=== PATIENT | female | born 1940 | race Hispanic/Latino ===

== ENCOUNTER 2018-01-03 11:09 | Emergency (ER) | payer BC, MEDICARE ==
[2018-01-03 11:10] VITALS: BMI 32.1
--- NOTE | 2018-01-03 12:39 | RAD ---
HISTORY: Cough COMPARISON: 06/29/2020 50 TECHNIQUE: Chest PA and lateral FINDINGS: LUNGS: No active pulmonary disease. PLEURA: No significant pleural effusion identified. No pneumothorax apparent. CARDIOVASCULAR: Normal. OSSEOUS STRUCTURES: No significant abnormalities. VISUALIZED UPPER ABDOMEN: Normal. OTHER FINDINGS: None. IMPRESSION: No active disease.
[2018-01-03 13:39] LABS: BASO # 0.1 K/uL (0.0-0.2); BASO % 1.1 % (0.0-2.0); EOS # 0.2 K/uL (0.0-0.7); HEMOGLOBIN 12.4 g/dL (12.0-16.0); LYMPH # 1.4 K/uL (1.0-4.3); MEAN CELL VOLUME 86.2 fl (81.0-99.0); MEAN CORPUSCULAR HEMOGLOBIN 28.2 pg (27.0-31.0); MEAN CORPUSCULAR HGB CONC 32.7 g/dL (33.0-37.0); MEAN PLATELET VOLUME 8.8 fl (7.2-11.7); MONO # 0.4 K/uL (0.0-0.8); MONO % 8.1 % (0.0-10.0); NEUT # 2.7 K/uL (1.8-7.0); NEUT % 56.8 % (50.0-75.0); NRBC % 0.1 % (0.0-0.0); RBC 4.4 Mil/uL (3.80-5.20); RED CELL DISTRIBUTION WIDTH 13.4 % (11.5-14.5); WHITE BLOOD COUNT 4.8 K/uL (4.8-10.8)
--- NOTE | 2018-01-03 13:41 | ED PDOC ---
HPI: General Adult Time Seen by Provider: 01/03/18 11:52 Chief Complaint (Nursing): Flu-like Symptoms Chief Complaint (Provider): Flu-like Symptoms History Per: Patient History/Exam Limitations: no limitations Onset/Duration Of Symptoms: Persistent (x2 weeks) Additional Complaint(s): Gracia Reyes is a 77 year old female that presents to the ED with a chief complaint of cough, pleuritic chest pain, and back pain with cough that she has been experiencing for the past two weeks. Patient states that she has been taking over the counter medications without relief, and denies any fever. Of Note: Patient presents to ED with , who has similar symptoms. Past Medical History Reviewed: Historical Data, Nursing Documentation, Vital Signs Vital Signs: Last Vital Signs Temp 98.0 F 01/03/18 20:11 Pulse 75 01/03/18 20:11 Resp 15 01/03/18 20:11 BP 134/78 01/03/18 20:11 Pulse Ox 99 01/03/18 20:11 - Medical History PMH: Anemia, Anxiety, Arthritis (KNEES AND HANDS), Asthma, Bronchitis, Colonic Polyps, GERD, HTN, Hypercholesterolemia, Hypothyroidism Denies: Chronic Kidney Disease - Surgical History Surgical History: Cholecystectomy, Endoscopy - Family History Family History: States: Unknown Family Hx - Home Medications Home Medications: Ambulatory Orders Medication Instructions Recorded Albuterol HFA [Ventolin HFA 90 2 puff IH Q6 PRN 01/03/18 mcg/actuation (8 g)] Aspirin [Aspirin] 325 mg PO DAILY 01/03/18 Benzonatate [Tessalon Perles] 100 mg PO BID PRN 5 Days sgl 01/03/18 Budesonide/Formoterol Fumarate 2 puff IH Q12 01/03/18 [Symbicort 160-4.5 Mcg Inhaler] Glipizide [Glipizide Xl] 10 mg PO BID 01/03/18 Insulin Aspart Prot/Insuln Asp 10 unit SC BID 01/03/18 [Novolog Mix 70-30 Vial] Levothyroxine [Synthroid] 25 mcg PO DAILY 01/03/18 Linaclotide [Linzess] 145 mcg PO DAILY 01/03/18 Losartan [Cozaar] 50 mg PO DAILY 01/03/18 MetFORMIN [glucoPHAGE] 1,000 mg PO BID 01/03/18 [place]-3 Fatty Acids/Fish Oil 1 cap PO DAILY 01/03/18 [[place]-3 1,000 mg Softgel] Omeprazole [Omeprazole] 40 mg PO DAILY 01/03/18 Rosuvastatin Calcium [Crestor] 10 mg PO HS 01/03/18 Theophylline Anhydrous 600 mg PO DAILY 01/03/18 [Theophylline] Vitamin B Complex [Super B-50 1 cap PO DAILY 01/03/18 Complex] - Allergies Allergies/Adverse Reactions: Allergies Allergy/AdvReac Type Severity Reaction Status Date / Time Penicillins Allergy RASH Verified 01/03/18 12:12 Review of Systems ROS Statement: Except As Marked, All Systems Reviewed And Found Negative Cardiovascular: Positive for: Chest Pain Respiratory: Positive for: Cough Musculoskeletal: Positive for: Back Pain (with cough) Physical Exam - Reviewed Nursing Documentation Reviewed: Yes Vital Signs Reviewed: Yes - Physical Exam Appears: Positive for: Non-toxic, No Acute Distress Head Exam: Positive for: ATRAUMATIC, NORMOCEPHALIC Skin: Positive for: Normal Color, Warm Eye Exam: Positive for: Normal appearance, EOMI, PERRL ENT: Positive for: Normal ENT Inspection Neck: Positive for: Normal, Supple Cardiovascular/Chest: Positive for: Regular Rate, Rhythm. Negative for: Murmur Respiratory: Positive for: Normal Breath Sounds. Negative for: Wheezing Gastrointestinal/Abdominal: Positive for: Normal Exam, Soft. Negative for: Tenderness Back: Positive for: Normal Inspection. Negative for: L CVA Tenderness, R CVA Tenderness Extremity: Positive for: Normal ROM. Negative for: Deformity, Swelling Neurologic/Psych: Positive for: Alert, Oriented. Negative for: Motor/Sensory Deficits - Laboratory Results Result Diagrams: 01/03/18 13:00 01/03/18 13:00 - ECG O2 Sat by Pulse Oximetry: 96 (RA) Pulse Ox Interpretation: Normal Medical Decision Making Medical Decision Making: Impression: Viral Syndrome vs. Pneumonia vs. Influenza vs. Bronchitis Plan: * EKG * CMP * CBC * PTT * PT * Troponin I * Glucose, Blood, POC * Urine Dip * Urinalysis * Blood Culture * Flu Swab * Reevaluation Scribe Attestation: Documented by Zoey Monsivais, acting as a scribe for Debo Nelson MD. Provider Scribe Attestation: All medical record entries made by the Scribe were at my direction and personally dictated by me. I have reviewed the chart and agree that the record accurately reflects my personal performance of the history, physical exam, medical decision making, and the department course for this patient. I have also personally directed, reviewed, and agree with the discharge instructions and disposition. Disposition - Clinical Impression Clinical Impression: URI (upper respiratory infection), Chest pain - Disposition Referrals: [facility] [Outside] - 01/04/18 Disposition: Transfer of Care Disposition Time: 15:30 Condition: STABLE Additional Instructions: Return if not better in 3 days. Prescriptions: Benzonatate [Tessalon Perles] 100 mg PO BID PRN 5 Days sgl PRN Reason: Cough Instructions: Chest Pain, Viral Upper Respiratory Infection, Adult (DC) Forms: [employer] (Romanian) Print Language: MACEDONIAN Patient Signed Over To: Fidencio Wilson Handoff Comments: Pending repeat troponin.
[2018-01-03 13:52] LABS: ALB/GLOB RATIO 1.3 (1.0-2.1); ALBUMIN 4.4 g/dL (3.5-5.0); ALT/SGPT 35 U/L (9-52); AST/SGOT 35 U/L (14-36); BLOOD UREA NITROGEN 20 mg/dl (7-17); GFR AFRICAN-AMERICAN > 60; GFR NON-AFRICAN AMERICAN > 60
[2018-01-03 14:12] LABS: SQUAMOUS EPITHIAL 2 /hpf (0-5); URINE BILIRUBIN NEGATIVE (NEGATIVE); URINE BLOOD NEGATIVE (NEGATIVE); URINE CLARITY SLIGHTY-CLOUDY (Clear); URINE COLOR YELLOW (YELLOW); URINE GLUCOSE (UA) NEG (Normal); URINE LEUKOCYTE ESTERASE NEG Leu/uL (Negative); URINE NITRATE NEGATIVE (NEGATIVE); URINE PROTEIN 30 mg/dL (NEGATIVE)
[2018-01-03 15:19] LABS: PARTIAL THROMBOPLASTIN TIME 31.6 Seconds (25.6-37.1); PROTHROMBIN TIME 10.4 Seconds (9.8-13.1)
[2018-01-03] MEDS ORDERED: Iodixanol 320 MG/ML 100 ML BOTTLE IV ONE (16:15)
[2018-01-03] MEDS ORDERED: Sodium Chloride 0.9% 100 ML ONE (16:16)
--- NOTE | 2018-01-03 17:32 | CT ---
PROCEDURE: CT Chest with contrast (Pulmonary Angiogram) HISTORY: Pleuritic CP COMPARISON: None available. TECHNIQUE: Axial computed tomography images were obtained of the chest in the pulmonary arterial phase of enhancement. Coronal and sagittal reformatted images were created and reviewed. Intravenous contrast dose: 90 mL Visipaque 320 Radiation dose: Total exam DLP = 378.63 mGy-cm. This CT exam was performed using one or more of the following dose reduction techniques: Automated exposure control, adjustment of the mA and/or kV according to patient size, and/or use of iterative reconstruction technique. FINDINGS: PULMONARY ARTERIES: Unremarkable. No pulmonary embolism. AORTA: No acute findings. No thoracic aortic aneurysm. LUNGS: No pulmonary infiltrate. 6 mm right upper lobe subpleural noncalcified nodule. Followup advised 6-12 months with noncontrast chest CT as per Fleischner society criteria. No other pulmonary mass identified. PLEURAL SPACES: Unremarkable. No effusion or pneuomothorax. HEART: Unremarkable. No cardiomegaly. No significant pericardial effusion. LYMPH NODES: No lymphadenopathy. BONES, CHEST WALL: Unremarkable. No fracture or destructive lesion OTHER FINDINGS: Status post cholecystectomy. IMPRESSION: No evidence of pulmonary embolism. Incidental 6 mm subpleural nodule right upper lobe. Followup with noncontrast chest CT advised 6-12 months. No other significant abnormality.
--- NOTE | 2018-01-03 17:40 | ED PDOC ---
- Laboratory Results Result Diagrams: 01/03/18 13:00 01/03/18 13:00 Interpretation Of Abn Labs: dimer elevated - ECG O2 Sat by Pulse Oximetry: 96 (RA) Pulse Ox Interpretation: Normal - Progress ED Course And Treament: 1730: Took over care from Dr. Kent. Here with chest pain, cough, back pain. FU on CT and repeat troponin. Likely uri related. CT: Incidental nodule on lung. 185: Stable. AAOx3. Pain free. Disposition - Clinical Impression Clinical Impression: URI (upper respiratory infection), Chest pain - POA Present On Arrival: None - Disposition Referrals: [facility] [Outside] - 01/04/18 Disposition: Routine/Home Disposition Time: 19:00 Condition: STABLE Additional Instructions: Return if not better in 3 days. Prescriptions: Benzonatate [Tessalon Perles] 100 mg PO BID PRN 5 Days sgl PRN Reason: Cough Instructions: Chest Pain, Viral Upper Respiratory Infection, Adult (DC) Forms: [employer] (Greek) Print Language: ENGLISH
[2018-01-03 20:12] VITALS: BP 134/78; PULSE 75; RESP 15; TEMP 98
[2018-01-04 16:28] VITALS: O2SAT 96
--- NOTE | 2018-01-05 18:23 | CARD ---
APPROVED REPORT EKG Measurement Heart [id number] <Conclusion> Normal sinus rhythm Minimal voltage criteria for LVH, may be normal variant Nonspecific T wave abnormality Abnormal ECG
== END 2018-01-03 20:12 | disposition home or self-care (01) ==
LOC: H.ER 11:09
DX: J06.9 Acute upper respiratory infection, unspecified (principal); R07.89 Other chest pain; E03.9 Hypothyroidism, unspecified; E78.00 Pure hypercholesterolemia, unspecified; I10 Essential (primary) hypertension; Z79.4 Long term (current) use of insulin; Z79.82 Long term (current) use of aspirin; Z88.0 Allergy status to penicillin; K21.9 Gastro-esophageal reflux disease without esophagitis; J45.909 Unspecified asthma, uncomplicated; F41.9 Anxiety disorder, unspecified
CPT/HCPCS: 71046; 71275; 80053; 81003; 82948; 84484; 85025; 85378; 85610; 85730; 87040; 87804; 93005; 99283; Q9967

== ENCOUNTER 2018-08-30 15:52 | Observation (INO) | payer MEDICARE ==
[2018-08-30 15:52] VITALS: BMI 34.5
--- NOTE | 2018-08-30 16:48 | ED PDOC ---
Hyperglycemia/Hypoglycemia Time Seen by Provider: 08/30/18 16:17 Chief Complaint (Nursing): High Blood Sugar Chief Complaint (Provider): Dizziness History Per: Patient History/Exam Limitations: no limitations Onset/Duration Of Symptoms: Days Current Symptoms Are (Timing): Still Present : The patient does not have any of the infectious symptoms listed except for those marked. Additional History Per: Patient Additional Complaint(s): 78yo female, history of diabetes, comes to ER reporting dizziness x 2 days and states she feels "woozy" and as if the room is spinning. She reports the dizziness is present when she sits up from a flat position but at times is present when she lies down. She states the symptoms last approximately 1 min and spontaneously resolve, but are recurrent. She additionally reports for the past 1 month, she has had difficulty controlling her blood sugar and recently had her diabetes medications adjusted by her doctor. She reports despite the adjustment, her blood sugar has been around 300 and close to 400 this past week. Patient states she has a chronic overactive bladder and she tries to drink a lot of water; she denies any worsening polydypsia or polyuria. Otherwise, denies any ch est pain, shortness of breath, or worsening lower extremity edema. No other complaints. PMD: Dr. Ji Past Medical History Reviewed: Historical Data, Nursing Documentation, Vital Signs Vital Signs: Last Vital Signs Temp 98.2 F 08/30/18 16:07 Pulse 81 08/30/18 16:07 Resp 16 08/30/18 16:07 BP 184/81 H 08/30/18 16:07 Pulse Ox 99 08/30/18 16:07 - Medical History PMH: Anemia, Anxiety, Arthritis, Asthma, Bronchitis, Colonic Polyps, COPD, Diabetes, GERD, HTN, Hypercholesterolemia, Hypothyroidism Denies: Chronic Kidney Disease - Surgical History Surgical History: Cholecystectomy, Endoscopy - Family History Family History: States: Unknown Family Hx - Social History Current smoker - smoking cessation education provided: No Alcohol: None Drugs: Denies - Home Medications Home Medications: Ambulatory Orders Medication Instructions Recorded RX: Albuterol HFA [Ventolin HFA 90 2 puff IH Q6 PRN 01/03/18 mcg/actuation (8 g)] RX: Aspirin 325 mg PO DAILY 01/03/18 RX: Budesonide/Formoterol Fumarate 2 puff IH Q12 01/03/18 [Symbicort 160-4.5 Mcg Inhaler] RX: Glipizide [Glipizide Xl] 10 mg PO BID 01/03/18 RX: Insulin Aspart Prot/Insuln Asp 15 unit SC BID 01/03/18 [Novolog Mix 70-30 Vial] RX: Levothyroxine [Synthroid] 50 mcg PO DAILY 01/03/18 RX: Linaclotide [Linzess] 145 mcg PO DAILY 01/03/18 RX: Losartan [Cozaar] 50 mg PO DAILY 01/03/18 RX: MetFORMIN [glucoPHAGE] 1,000 mg PO BID 01/03/18 RX: [place]-3 Fatty Acids/Fish Oil 1 cap PO DAILY 01/03/18 [[place]-3 1,000 mg Softgel] RX: Omeprazole 40 mg PO DAILY 01/03/18 RX: Rosuvastatin Calcium [Crestor] 10 mg PO DAILY 01/03/18 RX: Theophylline Anhydrous 600 mg PO DAILY PRN 01/03/18 [Theophylline] RX: Vitamin B Complex [Super B-50 1 cap PO DAILY 01/03/18 Complex] RX: Albuterol/Ipratropium [Duoneb 3 ml IH Q6 PRN 08/30/18 3 mg/0.5 mg (3 ml) UD] RX: Cholecalciferol (Vitamin D3) 5,000 unit PO DAILY 08/30/18 [Vitamin D3] RX: Oxybutynin XL [Ditropan XL] 20 mg PO DAILY 08/30/18 RX: Acetaminophen [Tylenol 325mg 650 mg PO Q6 PRN tab 08/31/18 tab] RX: Magnesium Oxide [Magnesium] 400 mg PO DAILY 5 Days #5 capsule 08/31/18 RX: Meclizine [Meclizine*] 25 mg PO TID PRN 30 Days #30 tab 08/31/18 - Allergies Allergies/Adverse Reactions: Allergies Allergy/AdvReac Type Severity Reaction Status Date / Time Penicillins Allergy RASH Verified 08/30/18 16:08 Review of Systems ROS Statement: Except As Marked, All Systems Reviewed And Found Negative (as per HPI) Constitutional: Negative for: Fever, Chills Cardiovascular: Negative for: Chest Pain Respiratory: Negative for: Shortness of Breath Genitourinary Female: Negative for: Frequency Neurological: Positive for: Dizziness. Negative for: Weakness, Numbness Physical Exam - Reviewed Nursing Documentation Reviewed: Yes Vital Signs Reviewed: Yes - Physical Exam Appears: Positive for: Non-toxic, No Acute Distress Head Exam: Positive for: ATRAUMATIC, NORMAL INSPECTION, NORMOCEPHALIC Skin: Positive for: Normal Color, Warm, DRY Eye Exam: Positive for: Normal appearance, EOMI, PERRL. Negative for: Nystagmus Neck: Positive for: Normal, Supple Cardiovascular/Chest: Positive for: Regular Rate, Rhythm Respiratory: Positive for: Normal Breath Sounds Gastrointestinal/Abdominal: Positive for: Normal Exam, Soft Back: Positive for: Normal Inspection Extremity: Positive for: Normal ROM Neurologic/Psych: Positive for: Alert, lap regulator II-XII, Oriented, Other (Floyd-hallpike test elicits dizziness with left to right motion; no nystagmus. Head impulse test negatie. Test of skew negative.). Negative for: Motor/Sensory Deficits - Laboratory Results Result Diagrams: 08/30/18 17:06 08/30/18 17:06 - ECG ECG: Positive for: Interpreted By Me, Viewed By Me ECG Rhythm: Positive for: Normal QRS, Sinus Rhythm Interpretation Of Abn EKG: t-wave inversion lateral leads; unchanged from prior on 06/15/18 Rate: 69 O2 Sat by Pulse Oximetry: 99 (RA) Pulse Ox Interpretation: Normal Medical Decision Making Medical Decision Making: Impression: 78yo female with vertigo, mild hyperglycemia Differential: Includin but not limited to electrolyte abnormality, renal insufficiency, hypertensive encephalopathy, intracranial mass Plan: -- Labs -- CT Head w.o contrast -- Urinalysis -- EKG -- Meclizine 25 mg PO 17:37 CT Head FINDINGS: Streak artifact obscures evaluation of the skull base. HEMORRHAGE: No intracranial hemorrhage. BRAIN: Diffuse atrophy with prominence of the ventricles and sulci noted. No mass effect or edema. Intracranial atherosclerosis. Scattered periventricular and subcortical white matter hypodensities, which are nonspecific, but often seen with chronic microvascular ischemic disease. Please note that MRI with diffusion imaging is more sensitive in the detection of acute ischemic event. VENTRICLES: No hydrocephalus. CALVARIUM: Unremarkable. PARANASAL SINUSES: Mild mucosal thickening of the ethmoid air cells. MASTOID AIR CELLS: Unremarkable as visualized. No inflammatory changes. OTHER FINDINGS: None. IMPRESSION: Generalized atrophy. Nonspecific white matter changes. 17:58 Labs reviewed, significant for mild hyperglycemia and mild low magnesium. 18:10 On reeval patient continues to have vertiginous dizziness. Due to vascular risk factors, there is concern for VBI. Patient to be hospitalized for intractable vertigo and uncontrolled DM. Scribe Attestation: Documented by Anabel Joyce, acting as a scribe for Yin Aaron MD. Provider Scribe Attestation: All medical record entries made by the Scribe were at my direction and personall y dictated by me. I have reviewed the chart and agree that the record accurately reflects my personal performance of the history, physical exam, medical decision making, and the department course for this patient. I have also personally directed, reviewed, and agree with the discharge instructions and disposition. Disposition - Clinical Impression Clinical Impression: Hyperglycemia, Vertigo, Hypomagnesemia Counseled Patient/Family Regarding: Studies Performed, Diagnosis - Disposition Disposition Time: 18:00 Condition: FAIR - Pt Status Changed To: Hospital Disposition Of: Observation - POA Present On Arrival: Falls Or Trauma (risk), Poor Glycemic Control
[2018-08-30 17:21] LABS: BASO % 0.9 % (0.0-2.0); EOS # 0.1 K/uL (0.0-0.7); EOS % 3.1 % (0.0-4.0); HEMOGLOBIN 11.8 g/dL (12.0-16.0); LYMPH # 1.3 K/uL (1.0-4.3); LYMPH % 28.2 % (20.0-40.0); MEAN CELL VOLUME 86.4 fl (81.0-99.0); MEAN CORPUSCULAR HEMOGLOBIN 27.7 pg (27.0-31.0); MEAN CORPUSCULAR HGB CONC 32.1 g/dL (33.0-37.0); MEAN PLATELET VOLUME 9.1 fl (7.2-11.7); MONO # 0.5 K/uL (0.0-0.8); MONO % 11.8 % (0.0-10.0); NEUT # 2.6 K/uL (1.8-7.0); RBC 4.27 Mil/uL (3.80-5.20); RED CELL DISTRIBUTION WIDTH 13.3 % (11.5-14.5); WHITE BLOOD COUNT 4.7 K/uL (4.8-10.8)
[2018-08-30 17:24] LABS: ALB/GLOB RATIO 1.4 (1.0-2.1); ALBUMIN 4.1 g/dL (3.5-5.0); ALT/SGPT 36 U/L (9-52); AST/SGOT 28 U/L (14-36); BLOOD UREA NITROGEN 19 mg/dl (7-17); GFR NON-AFRICAN AMERICAN > 60
[2018-08-30 17:33] LABS: B-TYPE NATRIURETIC PEPTIDE 162 pg/ml (0-900)
[2018-08-30 17:44] LABS: SQUAMOUS EPITHIAL 4 /hpf (0-5); URINE BACTERIA RARE (<OCC); URINE BILIRUBIN NEGATIVE (NEGATIVE); URINE BLOOD NEGATIVE (NEGATIVE); URINE CLARITY SLIGHTY-CLOUDY (Clear); URINE COLOR BLUE (YELLOW); URINE GLUCOSE (UA) 50 mg/dL (Normal); URINE HYALINE CAST 0-2 /hpf (0-2); URINE LEUKOCYTE ESTERASE NEG Leu/uL (Negative); URINE PROTEIN 30 mg/dL (NEGATIVE); URINE UROBILINOGEN 0.2-1.0 mg/dL (0.2-1.0)
--- NOTE | 2018-08-30 17:51 | CT ---
Date of service: 08/30/2018 PROCEDURE: CT HEAD WITHOUT CONTRAST. HISTORY: dizziness COMPARISON: Images from noncontrast head CT performed 08/24/10 TECHNIQUE: Axial computed tomography images were obtained through the head/brain without intravenous contrast. Radiation dose: Total exam DLP = 844.96 mGy-cm. This CT exam was performed using one or more of the following dose reduction techniques: Automated exposure control, adjustment of the mA and/or kV according to patient size, and/or use of iterative reconstruction technique. FINDINGS: Streak artifact obscures evaluation of the skull base. HEMORRHAGE: No intracranial hemorrhage. BRAIN: Diffuse atrophy with prominence of the ventricles and sulci noted. No mass effect or edema. Intracranial atherosclerosis. Scattered periventricular and subcortical white matter hypodensities, which are nonspecific, but often seen with chronic microvascular ischemic disease. Please note that MRI with diffusion imaging is more sensitive in the detection of acute ischemic event. VENTRICLES: No hydrocephalus. CALVARIUM: Unremarkable. PARANASAL SINUSES: Mild mucosal thickening of the ethmoid air cells. MASTOID AIR CELLS: Unremarkable as visualized. No inflammatory changes. OTHER FINDINGS: None. IMPRESSION: Generalized atrophy. Nonspecific white matter changes.
[2018-08-30] MEDS ORDERED: Magnesium Oxide 400 mg Tab UD PO STA (18:05)
[2018-08-30] MEDS ORDERED: Insulin Regular 100 units/ml SC STA (18:09)
--- NOTE | 2018-08-30 21:38 | CP.PCM.HP ---
<KothariGermán leung - Last Filed: 08/30/18 23:09> History of Present Illness - History of Present Illness History of Present Illness: 78 year old female with IDDM, HTN, Asthma, Hypothyroidism, HLD presented with complaint of dizziness for past few days, that worsened today. Feeling is more like room is spinning. No alleviating/exacerbating factors. She does report that she has had high glucose readings at home for the past week. She saw her [employer] In last week and her insulin was increased. She takes Novolog Mix 70/30 15 units BID, but states her sugars have been >250 despite this. She admits to polydipsia but denies polyphagia/polyuria. No numbness or tingling of extemities, no weakness, no visual changes. Pt denies any headaches, visual disturbances, chest pain, dyspnea, abdominal pain, nausea, vomiting, pedal edema. Present on Admission - Present on Admission Any Indicators Present on Admission: No Past Patient History - Past Medical History & Family History Past Medical History?: Yes - Past Social History Alcohol: None Drugs: Denies - CARDIAC Hx Cardiac Disorders: Yes - PULMONARY Hx Asthma: Yes Hx Bronchitis: Yes Hx Chronic Obstructive Pulmonary Disease (COPD): Yes - NEUROLOGICAL Hx Neurological Disorder: No - HEENT Hx HEENT Problems: No Other/Comment: Wear glasses - RENAL Hx Chronic Kidney Disease: No - ENDOCRINE/METABOLIC Hx Endocrine Disorders: Yes - HEMATOLOGICAL/ONCOLOGICAL Hx Blood Disorders: Yes - INTEGUMENTARY Hx Dermatological Problems: No - MUSCULOSKELETAL/RHEUMATOLOGICAL Hx Arthritis: Yes - GASTROINTESTINAL Hx Gastrointestinal Disorders: Yes Hx Gastroesophageal Reflux: Yes Hx Hemorrhoids: Yes Other/Comment: HEARTBURN - GENITOURINARY/GYNECOLOGICAL Hx Genitourinary Disorders: Yes Hx Incontinence: Yes (OVERACTIVE BLADDER) Other/Comment: "OVERACTIVE BLADDER" - PSYCHIATRIC Hx Anxiety: Yes - SURGICAL HISTORY Hx Cholecystectomy: Yes - ANESTHESIA Hx Anesthesia: Yes Hx Anesthesia Reactions: No Hx Malignant Hyperthermia: No Meds Allergies/Adverse Reactions: Allergies Allergy/AdvReac Type Severity Reaction Status Date / Time Penicillins Allergy RASH Verified 08/30/18 16:08 Physical Exam - Constitutional Appears: Well, Non-toxic, No Acute Distress - Eye Exam Eye Exam: EOMI, Normal appearance, PERRL. absent: Nystagmus - ENT Exam ENT Exam: Mucous Membranes Moist - Respiratory Exam Respiratory Exam: Clear to Auscultation Bilateral, Wheezes (minimal, scattered ), NORMAL BREATHING PATTERN. absent: Rales, Rhonchi, Respiratory Distress - Cardiovascular Exam Cardiovascular Exam: REGULAR RHYTHM, +S1, +S2 - GI/Abdominal Exam GI & Abdominal Exam: Normal Bowel Sounds, Soft. absent: Tenderness - Extremities Exam Extremities exam: Positive for: normal inspection. Negative for: pedal edema - Back Exam Back exam: NORMAL INSPECTION - Neurological Exam Neurological exam: Alert, CN II-XII Intact, Reflexes Normal Additional comments: full range of motion b.l upper and lower extremities, strength 5/5, no sensory deficits - Psychiatric Exam Psychiatric exam: Normal Affect, Normal Mood - Skin Skin Exam: Dry, Intact, Normal Color, Warm Results - Vital Signs Recent Vital Signs: Last Vital Signs Temp 98.1 F 08/30/18 20:43 Pulse 67 08/30/18 20:43 Resp 16 08/30/18 20:43 BP 146/66 08/30/18 20:43 Pulse Ox 97 08/30/18 20:00 - Labs Result Diagrams: 08/30/18 17:06 08/30/18 17:06 Labs: Laboratory Results - last 24 hr 08/30/18 08/30/18 08/30/18 16:23 17:06 17:06 WBC 4.7 L RBC 4.27 Hgb 11.8 L Hct 36.9 MCV 86.4 MCH 27.7 MCHC 32.1 L RDW 13.3 Plt Count 238 MPV 9.1 Neut % (Auto) 56.0 Lymph % (Auto) 28.2 [place] % (Auto) 11.8 H Eos % (Auto) 3.1 Baso % (Auto) 0.9 Neut # (Auto) 2.6 Lymph # (Auto) 1.3 [place] # (Auto) 0.5 Eos # (Auto) 0.1 Baso # (Auto) 0.0 Sodium 140 Potassium 4.7 Chloride 108 H Carbon Dioxide 21 L Anion Gap 16 BUN 19 H Creatinine 0.5 L Est GFR ( Amer) > 60 Est GFR (Non-Af Amer) > 60 POC Glucose (mg/dL) 239 H Random Glucose 255 H Calcium 10.0 Phosphorus 3.3 Magnesium 1.2 L Total Bilirubin 0.2 AST 28 ALT 36 Alkaline Phosphatase 70 NT-Pro-B Natriuret Pep 162 Total Protein 7.1 Albumin 4.1 Globulin 3.0 Albumin/Globulin Ratio 1.4 TSH 3rd Generation 3.43 Urine Color Urine Clarity Urine pH Ur Specific [place] Urine Protein Urine Glucose (UA) Urine Ketones Urine Blood Urine Nitrate Urine Bilirubin Urine Urobilinogen Ur Leukocyte Esterase Urine RBC (Auto) Urine Microscopic WBC Ur Squamous Epith Cells Urine Bacteria Hyaline Casts Blood Type Antibody Screen BBK History Checked 08/30/18 08/30/18 08/30/18 17:07 17:10 17:15 WBC RBC Hgb Hct MCV MCH MCHC RDW Plt Count MPV Neut % (Auto) Lymph % (Auto) [place] % (Auto) Eos % (Auto) Baso % (Auto) Neut # (Auto) Lymph # (Auto) [place] # (Auto) Eos # (Auto) Baso # (Auto) Sodium Potassium Chloride Carbon Dioxide Anion Gap BUN Creatinine Est GFR ( Amer) Est GFR (Non-Af Amer) POC Glucose (mg/dL) 255 H Random Glucose Calcium Phosphorus Magnesium Total Bilirubin AST ALT Alkaline Phosphatase NT-Pro-B Natriuret Pep Total Protein Albumin Globulin Albumin/Globulin Ratio TSH 3rd Generation Urine Color Blue Urine Clarity Slighty-cloudy Urine pH 5.0 Ur Specific [place] 1.021 Urine Protein 30 Urine Glucose (UA) 50 Urine Ketones Negative Urine Blood Negative Urine Nitrate Negative Urine Bilirubin Negative Urine Urobilinogen 0.2-1.0 Ur Leukocyte Esterase Neg Urine RBC (Auto) 1 Urine Microscopic WBC 3 Ur Squamous Epith Cells 4 Urine Bacteria Rare Hyaline Casts 0-2 Blood Type O POSITIVE Antibody Screen Negative BBK History Checked Patient has bt 08/30/18 20:00 WBC RBC Hgb Hct MCV MCH MCHC RDW Plt Count MPV Neut % (Auto) Lymph % (Auto) [place] % (Auto) Eos % (Auto) Baso % (Auto) Neut # (Auto) Lymph # (Auto) [place] # (Auto) Eos # (Auto) Baso # (Auto) Sodium Potassium Chloride Carbon Dioxide Anion Gap BUN Creatinine Est GFR ( Amer) Est GFR (Non-Af Amer) POC Glucose (mg/dL) 167 H Random Glucose Calcium Phosphorus Magnesium Total Bilirubin AST ALT Alkaline Phosphatase NT-Pro-B Natriuret Pep Total Protein Albumin Globulin Albumin/Globulin Ratio TSH 3rd Generation Urine Color Urine Clarity Urine pH Ur Specific [place] Urine Protein Urine Glucose (UA) Urine Ketones Urine Blood Urine Nitrate Urine Bilirubin Urine Urobilinogen Ur Leukocyte Esterase Urine RBC (Auto) Urine Microscopic WBC Ur Squamous Epith Cells Urine Bacteria Hyaline Casts Blood Type Antibody Screen BBK History Checked - Imaging and Cardiology CT scan - head Additional comment: FINDINGS: Streak artifact obscures evaluation of the skull base. HEMORRHAGE: No intracranial hemorrhage. BRAIN: Diffuse atrophy with prominence of the ventricles and sulci noted. No mass effect or edema. Intracranial atherosclerosis. Scattered periventricular and subcortical white matter hypodensities, which are nonspecific, but often seen with chronic microvascular ischemic disease. Please note that MRI with diffusion imaging is more sensitive in the detection of acute ischemic event. VENTRICLES: No hydrocephalus. CALVARIUM: Unremarkable. PARANASAL SINUSES: Mild mucosal thickening of the ethmoid air cells. MASTOID AIR CELLS: Unremarkable as visualized. No inflammatory changes. OTHER FINDINGS: None. IMPRESSION: Generalized atrophy. Nonspecific white matter changes. Assessment & Plan - Assessment and Plan (Free Text) Assessment: 78 year old female presented with vertigo for past few days admitted for vertigo and hyperglycemia. Patients symptoms improved with meclizine, however she remains hyperglycemic. Symptoms may be related to hyperglycemia, infectious process less likely. Head CT reviewed. Patient is hemodynamically stable. #Vertigo #IDDM with hyperglycemia #Hypothyroidism #Normocytic Anemia #Asthma #DVT prophylaxis -continue with meclizine PRN -Accuchecks and insulin sliding scale for coverage -home insulin regimen resumed -f/u a1c and TSH -albuterol PRN -Lovenox 40mg sc case d/w attending <Yessy Presley - Last Filed: 08/31/18 09:21> Results - Vital Signs Recent Vital Signs: Last Vital Signs Temp 98.6 F 08/31/18 08:21 Pulse 61 08/31/18 08:21 Resp 18 08/31/18 08:21 BP 119/57 L 08/31/18 08:21 Pulse Ox 97 08/31/18 08:21 - Labs Result Diagrams: 08/30/18 17:06 08/30/18 17:06 Labs: Laboratory Results - last 24 hr 08/30/18 08/30/18 08/30/18 16:23 17:06 17:06 WBC 4.7 L RBC 4.27 Hgb 11.8 L Hct 36.9 MCV 86.4 MCH 27.7 MCHC 32.1 L RDW 13.3 Plt Count 238 MPV 9.1 Neut % (Auto) 56.0 Lymph % (Auto) 28.2 [place] % (Auto) 11.8 H Eos % (Auto) 3.1 Baso % (Auto) 0.9 Neut # (Auto) 2.6 Lymph # (Auto) 1.3 [place] # (Auto) 0.5 Eos # (Auto) 0.1 Baso # (Auto) 0.0 Sodium 140 Potassium 4.7 Chloride 108 H Carbon Dioxide 21 L Anion Gap 16 BUN 19 H Creatinine 0.5 L Est GFR ( Amer) > 60 Est GFR (Non-Af Amer) > 60 POC Glucose (mg/dL) 239 H Random Glucose 255 H Calcium 10.0 Phosphorus 3.3 Magnesium 1.2 L Total Bilirubin 0.2 AST 28 ALT 36 Alkaline Phosphatase 70 NT-Pro-B Natriuret Pep 162 Total Protein 7.1 Albumin 4.1 Globulin 3.0 Albumin/Globulin Ratio 1.4 TSH 3rd Generation 3.43 Urine Color Urine Clarity Urine pH Ur Specific [place] Urine Protein Urine Glucose (UA) Urine Ketones Urine Blood Urine Nitrate Urine Bilirubin Urine Urobilinogen Ur Leukocyte Esterase Urine RBC (Auto) Urine Microscopic WBC Ur Squamous Epith Cells Urine Bacteria Hyaline Casts Blood Type Antibody Screen BBK History Checked 08/30/18 08/30/18 08/30/18 17:07 17:10 17:15 WBC RBC Hgb Hct MCV MCH MCHC RDW Plt Count MPV Neut % (Auto) Lymph % (Auto) [place] % (Auto) Eos % (Auto) Baso % (Auto) Neut # (Auto) Lymph # (Auto) [place] # (Auto) Eos # (Auto) Baso # (Auto) Sodium Potassium Chloride Carbon Dioxide Anion Gap BUN Creatinine Est GFR ( Amer) Est GFR (Non-Af Amer) POC Glucose (mg/dL) 255 H Random Glucose Calcium Phosphorus Magnesium Total Bilirubin AST ALT Alkaline Phosphatase NT-Pro-B Natriuret Pep Total Protein Albumin Globulin Albumin/Globulin Ratio TSH 3rd Generation Urine Color Blue Urine Clarity Slighty-cloudy Urine pH 5.0 Ur Specific [place] 1.021 Urine Protein 30 Urine Glucose (UA) 50 Urine Ketones Negative Urine Blood Negative Urine Nitrate Negative Urine Bilirubin Negative Urine Urobilinogen 0.2-1.0 Ur Leukocyte Esterase Neg Urine RBC (Auto) 1 Urine Microscopic WBC 3 Ur Squamous Epith Cells 4 Urine Bacteria Rare Hyaline Casts 0-2 Blood Type O POSITIVE Antibody Screen Negative BBK History Checked Patient has bt 08/30/18 08/30/18 08/31/18 20:00 21:22 04:25 WBC RBC Hgb Hct MCV MCH MCHC RDW Plt Count MPV Neut % (Auto) Lymph % (Auto) [place] % (Auto) Eos % (Auto) Baso % (Auto) Neut # (Auto) Lymph # (Auto) [place] # (Auto) Eos # (Auto) Baso # (Auto) Sodium Potassium Chloride Carbon Dioxide Anion Gap BUN Creatinine Est GFR ( Amer) Est GFR (Non-Af Amer) POC Glucose (mg/dL) 167 H 133 H Random Glucose Calcium Phosphorus Magnesium Total Bilirubin AST ALT Alkaline Phosphatase NT-Pro-B Natriuret Pep Total Protein Albumin Globulin Albumin/Globulin Ratio TSH 3rd Generation 3.87 Urine Color Urine Clarity Urine pH Ur Specific [place] Urine Protein Urine Glucose (UA) Urine Ketones Urine Blood Urine Nitrate Urine Bilirubin Urine Urobilinogen Ur Leukocyte Esterase Urine RBC (Auto) Urine Microscopic WBC Ur Squamous Epith Cells Urine Bacteria Hyaline Casts Blood Type Antibody Screen BBK History Checked 08/31/18 05:10 WBC RBC Hgb Hct MCV MCH MCHC RDW Plt Count MPV Neut % (Auto) Lymph % (Auto) [place] % (Auto) Eos % (Auto) Baso % (Auto) Neut # (Auto) Lymph # (Auto) [place] # (Auto) Eos # (Auto) Baso # (Auto) Sodium Potassium Chloride Carbon Dioxide Anion Gap BUN Creatinine Est GFR ( Amer) Est GFR (Non-Af Amer) POC Glucose (mg/dL) 142 H Random Glucose Calcium Phosphorus Magnesium Total Bilirubin AST ALT Alkaline Phosphatase NT-Pro-B Natriuret Pep Total Protein Albumin Globulin Albumin/Globulin Ratio TSH 3rd Generation Urine Color Urine Clarity Urine pH Ur Specific [place] Urine Protein Urine Glucose (UA) Urine Ketones Urine Blood Urine Nitrate Urine Bilirubin Urine Urobilinogen Ur Leukocyte Esterase Urine RBC (Auto) Urine Microscopic WBC Ur Squamous Epith Cells Urine Bacteria Hyaline Casts Blood Type Antibody Screen BBK History Checked Attending/Attestation - Attestation I have personally seen and examined this patient.: Yes I have fully participated in the care of the patient.: Yes I have reviewed all pertinent clinical information: Yes Notes (Text): 08/31/18 09:20 agree with findings and plan as above. continue with meclizine, obs overnight and if stable and can ambulate, can dc home with follow up with PCP.
[2018-08-30] MEDS ORDERED: Albuterol-Ipratrop 3 mg / 0.5 (3 ml) UD IH PRN (21:47)
[2018-08-30] MEDS ORDERED: Theophylline 300mg ER 24 hrs Cap PO PRN (21:47)
[2018-08-30] MEDS ORDERED: Albuterol HFA 90 mcg/actuation (8 g) IH PRN (21:47)
[2018-08-30] MEDS ORDERED: Dextrose 50% SYRINGE Inj (50 ml) IV PRN (21:49)
[2018-08-30] MEDS ORDERED: Glucagon Recombinant 1 mg Inj IM PRN ×2 (21:49)
[2018-08-30] MEDS ORDERED: Dextrose 50% SYRINGE Inj (50 ml) IVP PRN ×2 (21:49)
[2018-08-31] MEDS: Insulin Regular 100 units/ml SC SCH ×4 (01:38→18:03)
[2018-08-31] MEDS ORDERED: Pneumococcal 23-Valent Vaccine IM ONE (04:36)
[2018-08-31] MEDS ORDERED: Levothyroxine 50 MCG TAB PO SCH (06:30)
[2018-08-31] MEDS ORDERED: Gadodiamide 287 MG/ML VIAL (15ML) IV ONE (08:47)
[2018-08-31] MEDS ORDERED: Pantoprazole 40 mg EC Tab PO SCH (09:00)
[2018-08-31] MEDS ORDERED: Multivitamin Vitamin B Complex (Nephro-Vite) Tab PO SCH (09:00)
[2018-08-31] MEDS ORDERED: Fluticasone-Salmeterol 250-50mcg Diskus IH SCH (09:00)
[2018-08-31] MEDS ORDERED: Omega-3-Acid Ethyl Esters 1 GM Cap PO SCH (09:00)
[2018-08-31] MEDS ORDERED: Cholecalciferol 1,000 INTLU TAB PO SCH (09:00)
[2018-08-31] MEDS ORDERED: Enoxaparin 40 mg Syringe SC SCH (09:00)
[2018-08-31] MEDS: Insulin Lispro Mix 75/25 100 units/ml (HumaLog) 10ml SC SCH ×2 (10:27→18:03)
--- NOTE | 2018-08-31 11:18 | MRI ---
Date of service: 08/31/2018 PROCEDURE: MRI BRAIN WITH AND WITHOUT CONTRAST HISTORY: vertigo COMPARISON: None available. TECHNIQUE: Multiplanar, multisequence MR images of the brain were obtained with and without intravenous contrast enhancement. 17 cc of Omniscan was utilized. FINDINGS: HEMORRHAGE: None DWI: No evidence of an acute or early subacute infarction. BRAIN PARENCHYMA: Good corticomedullary differentiation is seen. Limited, proportional diffuse expansion of the ventriculosulcal and cisternal spaces is appreciated with white matter lucency compatible with diffuse cerebral atrophy and chronic microangiopathy. No suspicious extra-axial fluid collection is identified and the midline brain anatomy appears grossly nonfocal as imaged. There is no mass effect throughout. ENHANCEMENT: No abnormal intracranial enhancement. VENTRICLES: A small cavum septum pellucidum is identified. No hydrocephalus. CRANIUM: Unremarkable. ORBITS: Grossly unremarkable. PARANASAL SINUSES/MASTOIDS: Clear VASCULAR SYSTEM: Skull base flow voids intact. OTHER FINDINGS: None . IMPRESSION: Stable limited age-related neuro degenerative changes are identified. No evidence of acute or subacute brain infarction or mass effect. No abnormal intracranial enhancement identified throughout.
--- NOTE | 2018-08-31 11:19 | CARD ---
APPROVED REPORT Date of service: 08/30/2018 EKG Measurement Heart [id number] <Conclusion> Normal sinus rhythm T wave abnormality, consider anterolateral ischemia Abnormal ECG
--- NOTE | 2018-08-31 11:43 | CP.PCM.DIS ---
<Omega Guerra - Last Filed: 08/31/18 15:53> Provider - Provider Date of Admission: 08/30/18 18:17 Attending physician: Yessy Presley DO Time Spent in preparation of Discharge (in minutes): 30 Diagnosis - Discharge Diagnosis (1) Vertigo Status: Acute Comment: - partially resolved. -c/w meclizine (2) Diabetes mellitus Status: Chronic Comment: -uncontrolled. -c/w diabetic home medications and insulin regimen as per endocrionlogist. -instructed to be complicance with diabetic diet. (3) Hypomagnesemia Status: Acute Comment: -MG oxide 800 mg given ED and also today. -Mg on discharge 1.4. -Mg oxide 400 mg daily x 5 days. -f/u Mg level with PMD Hospital Course - Lab Results Lab Results: Most Recent Lab Values WBC 4.7 K/uL (4.8-10.8) L 08/30/18 17:06 RBC 4.27 Mil/uL (3.80-5.20) 08/30/18 17:06 Hgb 11.8 g/dL (12.0-16.0) L 08/30/18 17:06 Hct 36.9 % (34.0-47.0) 08/30/18 17:06 MCV 86.4 fl (81.0-99.0) 08/30/18 17:06 MCH 27.7 pg (27.0-31.0) 08/30/18 17:06 MCHC 32.1 g/dL (33.0-37.0) L 08/30/18 17:06 RDW 13.3 % (11.5-14.5) 08/30/18 17:06 Plt Count 238 K/uL (130-400) 08/30/18 17:06 MPV 9.1 fl (7.2-11.7) 08/30/18 17:06 Neut % (Auto) 56.0 % (50.0-75.0) 08/30/18 17:06 Lymph % (Auto) 28.2 % (20.0-40.0) 08/30/18 17:06 [place] % (Auto) 11.8 % (0.0-10.0) H 08/30/18 17:06 Eos % (Auto) 3.1 % (0.0-4.0) 08/30/18 17:06 Baso % (Auto) 0.9 % (0.0-2.0) 08/30/18 17:06 Neut # (Auto) 2.6 K/uL (1.8-7.0) 08/30/18 17:06 Lymph # (Auto) 1.3 K/uL (1.0-4.3) 08/30/18 17:06 [place] # (Auto) 0.5 K/uL (0.0-0.8) 08/30/18 17:06 Eos # (Auto) 0.1 K/uL (0.0-0.7) 08/30/18 17:06 Baso # (Auto) 0.0 K/uL (0.0-0.2) 08/30/18 17:06 Sodium 140 mmol/l (132-148) 08/30/18 17:06 Potassium 4.7 MMOL/L (3.6-5.0) 08/30/18 17:06 Chloride 108 mmol/L (98-107) H 08/30/18 17:06 Carbon Dioxide 21 mmol/L (22-30) L 08/30/18 17:06 Anion Gap 16 (10-20) 08/30/18 17:06 BUN 19 mg/dl (7-17) H 08/30/18 17:06 Creatinine 0.5 mg/dl (0.7-1.2) L 08/30/18 17:06 Est GFR ( Amer) > 60 08/30/18 17:06 Est GFR (Non-Af Amer) > 60 08/30/18 17:06 POC Glucose (mg/dL) 142 mg/dL (65-110) H 08/31/18 05:10 Random Glucose 255 mg/dL (65-105) H 08/30/18 17:06 Calcium 10.0 mg/dL (8.4-10.2) 08/30/18 17:06 Phosphorus 3.3 mg/dl (2.5-4.5) 08/30/18 17:06 Magnesium 1.2 MG/DL (1.6-2.3) L 08/30/18 17:06 Total Bilirubin 0.2 mg/dl (0.2-1.3) 08/30/18 17:06 AST 28 U/L (14-36) 08/30/18 17:06 ALT 36 U/L (9-52) 08/30/18 17:06 Alkaline Phosphatase 70 U/L (38-126) 08/30/18 17:06 NT-Pro-B Natriuret Pep 162 pg/ml (0-900) 08/30/18 17:06 Total Protein 7.1 G/DL (6.3-8.2) 08/30/18 17:06 Albumin 4.1 g/dL (3.5-5.0) 08/30/18 17:06 Globulin 3.0 gm/dL (2.2-3.9) 08/30/18 17:06 Albumin/Globulin Ratio 1.4 (1.0-2.1) 08/30/18 17:06 TSH 3rd Generation 3.87 mIU/ML (0.46-4.68) 08/31/18 04:25 Urine Color Blue (YELLOW) 08/30/18 17:15 Urine Clarity Slighty-cloudy (Clear) 08/30/18 17:15 Urine pH 5.0 (5.0-8.0) 08/30/18 17:15 Ur Specific [place] 1.021 (1.003-1.030) 08/30/18 17:15 Urine Protein 30 mg/dL (NEGATIVE) 08/30/18 17:15 Urine Glucose (UA) 50 mg/dL (Normal) 08/30/18 17:15 Urine Ketones Negative mg/dL (NEGATIVE) 08/30/18 17:15 Urine Blood Negative (NEGATIVE) 08/30/18 17:15 Urine Nitrate Negative (NEGATIVE) 08/30/18 17:15 Urine Bilirubin Negative (NEGATIVE) 08/30/18 17:15 Urine Urobilinogen 0.2-1.0 mg/dL (0.2-1.0) 08/30/18 17:15 Ur Leukocyte Esterase Neg [place]/uL (Negative) 08/30/18 17:15 Urine RBC (Auto) 1 /hpf (0-3) 08/30/18 17:15 Urine Microscopic WBC 3 /hpf (0-5) 08/30/18 17:15 Ur Squamous Epith Cells 4 /hpf (0-5) 08/30/18 17:15 Urine Bacteria Rare (<OCC) 08/30/18 17:15 Hyaline Casts 0-2 /hpf (0-2) 08/30/18 17:15 Blood Type O POSITIVE 08/30/18 17:10 Antibody Screen Negative 08/30/18 17:10 BBK History Checked Patient has bt 08/30/18 17:10 - Hospital Course Hospital Course: 78 year old female with IDDM, HTN, Asthma, Hypothyroidism, HLD admitted for intractable vertigo started 2 days ago and uncontrolled DM. 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 Patient does not compliance with diet and her BS has been uncontrolled for the last 5 days. Reports this morning that vertigo has almost resolved with meclizine and patient was able to ambulate w/o gait imbalance. Orthostatic VS done this morning normal. Ct head: Generalized atrophy. Nonspecific white matter changes. MRI brain no acute infart or mass. Mg 1.2 on admission. Mg 800 mg tab given ED. MG level repeated before discharge 1.4 today . Mg oxide 800 mg given. will supplement mg oxide x 5 days .Patient cleared to be discharge and f/u Dr Santos PMD Patient instructed to f/u low carb diet and f/u with tile and mottle supervisor. Discharge Exam - Head Exam Head Exam: ATRAUMATIC, NORMAL INSPECTION, NORMOCEPHALIC - Eye Exam Eye Exam: EOMI, Normal appearance. absent: Nystagmus - Respiratory Exam Respiratory Exam: NORMAL BREATHING PATTERN - Cardiovascular Exam Cardiovascular Exam: REGULAR RHYTHM, +S1, +S2 - Neurological Exam Neurological exam: Alert, Normal Gait, Oriented x3 - Psychiatric Exam Psychiatric exam: Normal Affect - Skin Skin Exam: Intact Discharge Plan - Discharge Medications Prescriptions: RX: Magnesium Oxide [Magnesium] 400 mg PO DAILY 5 Days #5 capsule RX: Meclizine [Meclizine*] 25 mg PO TID PRN 30 Days #30 tab PRN Reason: Dizziness - Follow Up Plan Condition: GOOD Disposition: HOME/ ROUTINE Additional Instructions: -Follow up with PMD Dr santos in 7 days -F/u with your tile and mottle supervisor in 2 weeks <Yessy Presley - Last Filed: 08/31/18 17:48> Provider - Provider Date of Admission: 08/30/18 18:17 Attending physician: Yessy Presley DO Hospital Course - Lab Results Lab Results: Most Recent Lab Values WBC 4.7 K/uL (4.8-10.8) L 08/30/18 17:06 RBC 4.27 Mil/uL (3.80-5.20) 08/30/18 17:06 Hgb 11.8 g/dL (12.0-16.0) L 08/30/18 17:06 Hct 36.9 % (34.0-47.0) 08/30/18 17:06 MCV 86.4 fl (81.0-99.0) 08/30/18 17:06 MCH 27.7 pg (27.0-31.0) 08/30/18 17:06 MCHC 32.1 g/dL (33.0-37.0) L 08/30/18 17:06 RDW 13.3 % (11.5-14.5) 08/30/18 17:06 Plt Count 238 K/uL (130-400) 08/30/18 17:06 MPV 9.1 fl (7.2-11.7) 08/30/18 17:06 Neut % (Auto) 56.0 % (50.0-75.0) 08/30/18 17:06 Lymph % (Auto) 28.2 % (20.0-40.0) 08/30/18 17:06 [place] % (Auto) 11.8 % (0.0-10.0) H 08/30/18 17:06 Eos % (Auto) 3.1 % (0.0-4.0) 08/30/18 17:06 Baso % (Auto) 0.9 % (0.0-2.0) 08/30/18 17:06 Neut # (Auto) 2.6 K/uL (1.8-7.0) 08/30/18 17:06 Lymph # (Auto) 1.3 K/uL (1.0-4.3) 08/30/18 17:06 [place] # (Auto) 0.5 K/uL (0.0-0.8) 08/30/18 17:06 Eos # (Auto) 0.1 K/uL (0.0-0.7) 08/30/18 17:06 Baso # (Auto) 0.0 K/uL (0.0-0.2) 08/30/18 17:06 Sodium 140 mmol/l (132-148) 08/30/18 17:06 Potassium 4.7 MMOL/L (3.6-5.0) 08/30/18 17:06 Chloride 108 mmol/L (98-107) H 08/30/18 17:06 Carbon Dioxide 21 mmol/L (22-30) L 08/30/18 17:06 Anion Gap 16 (10-20) 08/30/18 17:06 BUN 19 mg/dl (7-17) H 08/30/18 17:06 Creatinine 0.5 mg/dl (0.7-1.2) L 08/30/18 17:06 Est GFR ( Amer) > 60 08/30/18 17:06 Est GFR (Non-Af Amer) > 60 08/30/18 17:06 POC Glucose (mg/dL) 113 mg/dL (65-110) H 08/31/18 15:52 Random Glucose 255 mg/dL (65-105) H 08/30/18 17:06 Hemoglobin A1c 7.7 % (4.2-6.5) H 08/31/18 04:25 Calcium 10.0 mg/dL (8.4-10.2) 08/30/18 17:06 Phosphorus 3.3 mg/dl (2.5-4.5) 08/30/18 17:06 Magnesium 1.4 MG/DL (1.6-2.3) L 08/31/18 13:21 Total Bilirubin 0.2 mg/dl (0.2-1.3) 08/30/18 17:06 AST 28 U/L (14-36) 08/30/18 17:06 ALT 36 U/L (9-52) 08/30/18 17:06 Alkaline Phosphatase 70 U/L (38-126) 08/30/18 17:06 NT-Pro-B Natriuret Pep 162 pg/ml (0-900) 08/30/18 17:06 Total Protein 7.1 G/DL (6.3-8.2) 08/30/18 17:06 Albumin 4.1 g/dL (3.5-5.0) 08/30/18 17:06 Globulin 3.0 gm/dL (2.2-3.9) 08/30/18 17:06 Albumin/Globulin Ratio 1.4 (1.0-2.1) 08/30/18 17:06 TSH 3rd Generation 3.87 mIU/ML (0.46-4.68) 08/31/18 04:25 Urine Color Blue (YELLOW) 08/30/18 17:15 Urine Clarity Slighty-cloudy (Clear) 08/30/18 17:15 Urine pH 5.0 (5.0-8.0) 08/30/18 17:15 Ur Specific [place] 1.021 (1.003-1.030) 08/30/18 17:15 Urine Protein 30 mg/dL (NEGATIVE) 08/30/18 17:15 Urine Glucose (UA) 50 mg/dL (Normal) 08/30/18 17:15 Urine Ketones Negative mg/dL (NEGATIVE) 08/30/18 17:15 Urine Blood Negative (NEGATIVE) 08/30/18 17:15 Urine Nitrate Negative (NEGATIVE) 08/30/18 17:15 Urine Bilirubin Negative (NEGATIVE) 08/30/18 17:15 Urine Urobilinogen 0.2-1.0 mg/dL (0.2-1.0) 08/30/18 17:15 Ur Leukocyte Esterase Neg [place]/uL (Negative) 08/30/18 17:15 Urine RBC (Auto) 1 /hpf (0-3) 08/30/18 17:15 Urine Microscopic WBC 3 /hpf (0-5) 08/30/18 17:15 Ur Squamous Epith Cells 4 /hpf (0-5) 08/30/18 17:15 Urine Bacteria Rare (<OCC) 08/30/18 17:15 Hyaline Casts 0-2 /hpf (0-2) 08/30/18 17:15 Blood Type O POSITIVE 08/30/18 17:10 Antibody Screen Negative 08/30/18 17:10 BBK History Checked Patient has bt 08/30/18 17:10 Attending/Attestation - Attestation I have personally seen and examined this patient.: Yes I have fully participated in the care of the patient.: Yes I have reviewed all pertinent clinical information, including history, physical exam and plan: Yes Notes (Text): 08/31/18 17:48 Agree with findings and plan as above. Patient stable to be discharged with follow up PCP and Meclizine.
[2018-08-31] MEDS ORDERED: Magnesium Oxide 400 mg Tab UD PO ONE (14:43)
[2018-08-31 15:50] VITALS: BP 154/72; RESP 17; TEMP 98; O2SAT 99
[2018-09-04 16:03] VITALS: PULSE 69
== END 2018-08-31 19:00 | disposition home or self-care (01) ==
LOC: H.ER 15:52 → H.ERHOLD 18:17 → H.TEL 21:04
PROVIDERS: ADMIT Student in an Organized Health Care Education/Training Program; ATTEND Student in an Organized Health Care Education/Training Program
DX: R42 Dizziness and giddiness (principal); E11.65 Type 2 diabetes mellitus with hyperglycemia; E83.42 Hypomagnesemia; E03.9 Hypothyroidism, unspecified; I10 Essential (primary) hypertension; D64.9 Anemia, unspecified; E78.5 Hyperlipidemia, unspecified; E78.00 Pure hypercholesterolemia, unspecified; J44.9 Chronic obstructive pulmonary disease, unspecified; K21.9 Gastro-esophageal reflux disease without esophagitis; N32.81 Overactive bladder; Z79.4 Long term (current) use of insulin; Z79.51 Long term (current) use of inhaled steroids; Z79.82 Long term (current) use of aspirin; F41.9 Anxiety disorder, unspecified; Z79.84 Long term (current) use of oral hypoglycemic drugs; Z23 Encounter for immunization; Z88.0 Allergy status to penicillin
CPT/HCPCS: 36415; 70450; 70553; 80053; 81003; 82948; 83036; 83735; 83880; 84100; 84443; 85025; 86850; 86900; 87086; 90732; 93005; 96372; 99283; A9579; G0009; G0378; J1650